=== PATIENT | female | born 1940 | race Asian ===

== ENCOUNTER 2017-03-01 12:39 | Emergency (ER) | payer OTHER ==
[~2017-03-01] VITALS: Wt 58.5 kg
[2017-03-01] MEDS ORDERED: SOD CHLORIDE 0.9% 1,000 ML IV STA (14:02)
--- NOTE | 2017-03-01 14:14 | ERD ---
ER Documentation Chief Complaint Date/Time DATE: 03/01/17 TIME: 14:03 Chief Complaint cough/weakness/bodyache x1week HPI 76-year-old female with no significant past medical history presenting with generalized weakness. She started with flulike symptoms about 2 weeks ago and has had a cough that has been worsening. She denies any fevers or chills. No dysuria, abdominal pain, chest pain, headache, nausea, vomiting, or diarrhea. ROS All systems reviewed and are negative except as per history of present illness. Medications Home Meds Reported Medications Guaifenesin-Dextromethorphan* (Robitussin* DM) 100MG/10MG/5ML Syrup, 10 ML PO TID Y for COUGH, ML 03/01/17 Nifedipine* (Nifedipine ER*) 30 Mg Tablet.sa, 30 MG PO DAILY, TAB.SA 03/01/17 Metoprolol Succinate* (Toprol XL*) 100 Mg Tab.sr.24h, 100 MG PO DAILY, #30 TAB 03/01/17 Losartan Potassium* (Losartan Potassium*) 25 Mg Tablet, 25 MG PO DAILY, TAB 03/01/17 Simvastatin* (Zocor*) 20 Mg Tablet, 20 MG PO QHS, #30 TAB 03/01/17 Allergies Allergies: Coded Allergies: No Known Allergy (Unverified , 03/01/17) PMhx/Soc Medical and Surgical Hx: pt denies Medical Hx, pt denies Surgical Hx FmHx Family History: No diabetes Physical Exam Vitals Vital Signs Date Time Temp Pulse Resp B/P Pulse Ox O2 Delivery O2 Flow Rate FiO2 03/01/17 12:42 98.2 76 20 155/74 92 Physical Exam Const: Well-appearing, no distress Head: Atraumatic Eyes: Normal Conjunctiva ENT: Normal External Ears, Nose and Mouth. Neck: Full range of motion..~ No meningismus. Resp: Clear to auscultation bilaterally Cardio: Regular rate and rhythm, no murmurs Abd: Soft, non tender, non distended. Normal bowel sounds Skin: No petechiae or rashes Back: No midline or flank tenderness Ext: No cyanosis, or edema Neur: Awake and alert and oriented 3, normal speech, cranial nerves intact, strength and sensations intact in all 4 extremities Psych: Normal Mood and Affect Results 24 hrs Current Medications Medications (Trade) Dose Ordered Sig/José Route PRN Reason Start Time Stop Time Status Last Admin Dose Admin Sodium Chloride (NS) 1,000 ml @ 1,000 mls/hr Q1H STAT IV 03/01/17 14:02 03/01/17 15:01 Procedures/MDM EKG: Rate/Rhythm: Normal Sinus Rhythm QRS, ST, T-waves: No ST elevations, T-wave inversions in the anterolateral leads Impression: Possible ischemic changes, no STEMI, no arrhythmia Labs: CBC, BMP, troponin pending Chest x-ray: Showed no acute abnormalities MDM Patient is presenting with generalized weakness and cough for about 2 weeks. Her vitals are stable and she is afebrile. I have a low suspicion for pneumonia or bronchitis. Acute coronary syndrome is less likely, however troponin was ordered. I do not suspect CVA or ICH. Patient will be signed out to Dr. Gongora, who will follow up on the results of the studies. If everything is normal, I believe the patient is stable for discharge with continued outpatient follow-up. Departure Diagnosis: Primary Impression: Generalized weakness Additional Impression: Cough Condition: Fair JEAN CARLOS MORENO MD Mar 01, 2017 14:14
--- NOTE | 2017-03-01 14:14 | RADRPT ---
PROCEDURE: XR Chest. CLINICAL INDICATION: Possible pneumonia TECHNIQUE: PA and lateral views of the chest were obtained COMPARISON: None FINDINGS: The heart is within normal limits in size. No evidence of pulmonary vascular congestion acute lung consolidation pleural effusions and pneumothorax. Atherosclerosis of the aorta. Minimal bilateral apical pleural thickening. IMPRESSION: No evidence of congestive heart or pneumonia. RPTAT:AAJJ Physician Hattie Date Time Electronically viewed and signed by Cecily Mendoza Physician on 03/01/2017 14:14 /
[2017-03-01] MEDS ORDERED: LOSA25TA5 PO (14:26)
[2017-03-01] MEDS ORDERED: SIMV20TA PO (14:26)
[2017-03-01] MEDS ORDERED: METO100T13 PO (14:27)
[2017-03-01] MEDS ORDERED: NIFE30TA60 PO (14:27)
[2017-03-01] MEDS ORDERED: UDROBDM PO (14:29)
[2017-03-01 15:24] LABS: ADD SCAN DIFF NO
[2017-03-01 15:42] LABS: BASOPHILS % 0.2 % (0.0-2.0); EOSINOPHILS # 0.1 10^3/ul (0.0-0.5); EOSINOPHILS % 0.8 % (0.0-7.0); HEMATOCRIT 36.3 % (37.0-47.0); HEMOGLOBIN 12.8 g/dl (12.0-16.0); LYMPHOCYTES # 1.8 10^3/ul (0.8-2.9); LYMPHOCYTES % 13.6 % (15.0-51.0); MEAN CORPUSCULAR HEMOGLOBIN 32.9 pg (29.0-33.0); MEAN CORPUSCULAR HGB CONC 35.3 g/dl (32.0-37.0); MEAN CORPUSCULAR VOLUME 93.3 fl (82.0-101.0); MEAN PLATELET VOLUME 11.8 fl (7.4-10.4); MONOCYTE # 1.2 10^3/ul (0.3-0.9); MONOCYTES % 8.6 % (0.0-11.0); NEUTROPHIL # 10.3 10^3/ul (1.6-7.5); PLATELET COUNT 227 10^3/UL (140-415); RED BLOOD COUNT 3.89 10^6/ul (4.20-5.40); RED CELL DISTRIBUTION WIDTH 11.5 % (11.5-14.5); WHITE BLOOD COUNT 13.5 10^3/ul (4.8-10.8)
[2017-03-01 15:50] LABS: CREATININE 1.11 mg/dl (0.44-1.00); POTASSIUM 3.5 mmol/L (3.5-5.1)
[2017-03-01 17:21] LABS: TROPONIN-I 0.059 ng/ml (0.00-0.12)
[2017-03-01] MEDS ORDERED: BENZ100C70 PO (17:30)
[2017-03-01 18:08] VITALS: BP 153/97; PULSE 74; RESP 22
== END 2017-03-01 18:12 | disposition home or self-care (01) ==
LOC: E/R 12:39
DX: R53.1 Weakness (principal); R40.2252 Coma scale, best verbal response, oriented, at arrival to emergency department; R40.2142 Coma scale, eyes open, spontaneous, at arrival to emergency department; R40.2362 Coma scale, best motor response, obeys commands, at arrival to emergency department
CPT/HCPCS: 36415; 71020; 80048; 84484; 85025; J7030; Z7502; Z7610; 93005